=== PATIENT | female | born 1980 | race Caucasian/White ===

== ENCOUNTER 2021-10-19 07:47 | Emergency (ER) | payer BC, SELFPAY ==
[2021-10-19 08:10] VITALS: BP 134/87; PULSE 77; RESP 18; TEMP 36.1; O2SAT 97; BMI 40.9
--- NOTE | 2021-10-19 08:13 | CRLHL7_ITS ---
For Patients: As a result of the Century Cures Act, medical imaging exams and procedure reports are released immediately into your electronic medical record. You may view this report before your referring provider. If you have questions, please contact your health care provider. Indication: Injury, pain Technique: Right shoulder 3 views. Comparison: None. Findings: Mildly displaced fracture of the proximal humerus. Normal glenohumeral alignment. Mild spurring at the AC joint. Impression: Mildly displaced fracture of the proximal humerus at the surgical neck. Dictated by Anjel Trevino MD @ 10/19/2021 8:44:58 AM (Electronically Signed)
--- NOTE | 2021-10-19 08:16 | ED.GENADULT ---
HPI - General Adult General Time Seen by Provider: 08:16 Date Seen: 10/19/21 Chief complaint: Shoulder Injury/Pain Stated complaint: Fell, right arm pain Time Seen by Provider: 10/19/21 08:13 Source: patient Mode of arrival: ambulatory Limitations: no limitations History of Present Illness HPI narrative: Patient is a 41-year-old male was taking her kids at daycare, they stopped 1 a PET some kittens, and she fell on her right shoulder. The shoulder was abducted and she landed on the shoulder on her side on the right described. Describes pain in her surgical neck area of her shoulder she has no obvious dislocation or sulcus sign in her shoulder. She has good distal CMS in her hand and arm. She denies any neck or back pain no other injuries. She reports good health, non , and no allergies to medications, presents to the ED for evaluation Related Data Home Medications Medication Instructions Recorded Confirmed desogestrel 0.15 mg-ethinyl tab 10/19/21 estradiol 0.03 mg tablet (Enskyce) paroxetine HCl 20 mg tablet mg PO 10/19/21 Previous Rx's Medication Instructions Recorded hydrocodone 7.5 mg-acetaminophen 1 tab PO Q6H #20 tabs 10/19/21 325 mg tablet Allergies Allergy/AdvReac Type Severity Reaction Status Date / Time No Known Drug Allergies Allergy Verified 10/19/21 08:09 Review of Systems Status of ROS: Reports: 6 or more systems reviewed and unremarkable except as noted in History and below Exam Narrative: Exam Narrative: Objective: Patient is alert orient x3 HEENT and neck are supple Right shoulder shows tenderness at the surgical neck, no bruising, no obvious dislocation of the shoulder, normal sensation over the deltoid region Right arm and forearm show no tenderness, elbow is unremarkable she has normal grasp strength in the right upper extremity No back complaints Const: Vital Signs, click to edit/add: Vital Signs - 24 hr 10/19/21 08:10 Temperature 96.9 F L Pulse Rate [Right Pulse Oximeter] 77 Respiratory Rate 18 Blood Pressure [Le ft Upper Arm] 134/87 Pulse Oximetry 97 Oxygen Delivery Me thod Room Air Course Course Hospital Course: X-ray of the right shoulder. The patient reports she last ate last night Vital Signs Vital signs: Initial Vital Signs Temperature 96.9 F L 10/19/21 08:10 Temperature Source Temporal Artery Scan 10/19/21 08:10 Pulse Rate 77 10/19/21 08:10 Pulse Rhythm 10/19/21 08:10 Respiratory Rate 18 10/19/21 08:10 Blood Pressure 134/87 10/19/21 08:10 Blood Pressure Mean 102 10/19/21 08:10 Blood Pressure Position Sitting 10/19/21 08:10 Pulse Oximetry 97 10/19/21 08:10 Oxygen Delivery Method 10/19/21 08:10 Vital Signs Temperature 96.9 F L 10/19/21 08:10 Pulse Rate 77 10/19/21 08:10 Respiratory Rate 18 10/19/21 08:10 Blood Pressure 134/87 10/19/21 08:10 Pulse Oximetry 97 10/19/21 08:10 Oxygen Delivery Method 10/19/21 08:10 Temperature 96.9 F L 10/19/21 08:10 Pulse Rate 77 10/19/21 08:10 Respiratory Rate 18 10/19/21 08:10 Blood Pressure 134/87 10/19/21 08:10 Pulse Oximetry 97 10/19/21 08:10 Oxygen Delivery Method 10/19/21 08:10 Medical Decision Making MDM Narrative Medical decision making narrative: Patient fell on her right shoulder, rule out dislocation, rule out surgical neck fracture. Addendum: The patient by my read has a surgical neck fracture minimally displaced. Should get an arm sling. Pain medication in the form of Epworth and Advil these at home. Ortho follow up in 2-3 days. Icing the area 5-10 minutes 5 times a day. Return if problems or concerns. Discharge Plan Discharge Clinical Impression: Acute pain of right shoulder Patient Disposition: Home w/ Parent or Adult Condition: Stable Additional Instructions: Ortho recheck in 2-3 days, please make appointment for the patient Activity Level: Light activity Discharge Diet: Regular Prescriptions: New hydrocodone-acetaminophen 7.5-325 mg tablet 1 tab PO Q6H Qty: 20 0RF No Action desogestrel-ethinyl estradiol [Enskyce] 0.15-0.03 mg tablet paroxetine HCl 20 mg tablet PO Stand Alone Forms: [employer] Info Instructions
[2021-10-19] MEDS: MORPHINE 4 MG/ML INJ IVP (08:56)
[2021-10-19] MEDS: ONDANSETRON 2 MG/ML inj 4 MG IVP (08:57)
[2021-10-19 09:25] VITALS: BP 124/81; PULSE 75; RESP 16; O2SAT 98
--- NOTE | 2021-10-19 09:28 | ED.NURSE ---
Sling applied to right arm. Patient comfortable with sling. Appointment made for patient on Sunday at 9:10 with Matt Lerma. Given discharge instructions and verbalizes understanding of discharge instructions. No further questions asked.
== END 2021-10-19 09:30 | disposition home or self-care (01) ==
PROVIDERS: Emergency Provider Family Medicine; PCP Family Medicine
DX: S42.211A Unspecified displaced fracture of surgical neck of right humerus, initial encounter for closed fracture (principal); W19.XXXA Unspecified fall, initial encounter
CPT/HCPCS: 73030; 96372; 96374; 96375; 99284; J2270; J2405

== ENCOUNTER 2022-02-08 16:15 | Outpatient (RCR) | payer BC, SELFPAY | END 2022-05-05 10:07 | disposition home or self-care (01) | PROVIDERS: PCP Family Medicine; Visit Provider Physician Assistant Surgical | DX: S42.209D Unspecified fracture of upper end of unspecified humerus, subsequent encounter for fracture with routine healing (principal); Z51.89 Encounter for other specified aftercare | CPT/HCPCS: 97110; 97140; 97161 ==